=== PATIENT | male | born 1970 | race Hispanic/Latino ===

== ENCOUNTER 2019-08-19 03:16 | Inpatient (IN) | payer BC ==
[2019-08-19] MEDS ORDERED: Promethazine HCl 25 MG/ML VIAL ONE (03:34)
[2019-08-19] MEDS ORDERED: niCARdipine 25 MG in Sodium Chloride 0.9% 250 ML 240 ML IVPB SCH (04:45)
[2019-08-19] MEDS ORDERED: Acetaminophen 325 MG TAB PO PRN (05:15)
[2019-08-19] MEDS ORDERED: Ondansetron ODT 4 MG TAB SL PRN (05:15)
[2019-08-19] MEDS ORDERED: Ondansetron PF 4 MG/2 ML Vial IVP PRN ×2 (05:15→06:14)
[2019-08-19 05:41] VITALS: BMI 21.9
[2019-08-19] MEDS ORDERED: Labetalol HCl 100 MG/20 ML VIAL SLOW IVP PRN (06:14)
[2019-08-19] MEDS ORDERED: Acetaminophen 650 MG Suppository PR PRN (06:14)
[2019-08-19] MEDS ORDERED: Morphine 2 MG/ML SYRINGE SLOW IVP PRN (06:14)
[2019-08-19] MEDS ORDERED: Nitroglycerin 0.4 MG TAB (25 Tab Bottle) SL PRN (06:14)
[2019-08-19] MEDS ORDERED: Dextrose 5% in Water 1,000 ML IV PRN (06:14)
[2019-08-19] MEDS ORDERED: HumaLOG 300 UNITS/3 ML VIAL SC PRN (06:14)
[2019-08-19] MEDS ORDERED: Dextrose 50% Abboject 50 ML SYRINGE SLOW IVP PRN (06:14)
[2019-08-19] MEDS ORDERED: Morphine 2 MG/ML SYRINGE SLOW IVP SCH (06:15)
[2019-08-19] MEDS ORDERED: Labetalol HCl 100 MG/20 ML VIAL SLOW IVP SCH (06:15)
[2019-08-19] MEDS ORDERED: Scopolamine 1.5 mg/72 hour Patch TD SCH (06:15)
[2019-08-19] MEDS ORDERED: Prevnar 13-Val Conj/PF 0.5 ML SYRINGE IM ONE (06:30)
[2019-08-19] MEDS ORDERED: FLU VACC QS2019-20(6MOS UP)/PF 60 MCG/0.5 ML SYRINGE IM ONE (06:30)
--- NOTE | 2019-08-19 06:47 | HP ---
PRESENTING COMPLAINT: Nausea, vomiting, and elevated blood pressure. HISTORY OF PRESENT ILLNESS: Mr. Nathaly Porras is a 49-year-old male with past medical history of hypertension, end-stage renal disease, on dialysis Wednesday, Wednesday, Wednesday who underwent his regular dialysis today, but post procedure he developed rise in elevated blood pressure requiring transfer to the emergency room at [facility]. The patient also admits to headache, nausea, which has been persistent as well as intermittent dizziness. He denies any chest pain. The patient denies any fever or chills. The patient states he has been compliant with his medications and has taken his medicine predialysis. In the emergency room, he was noted with elevated blood pressure with systolic over 200s/110s. He has been started on Cardene drip. He states blood pressure has improved to systolic of 170s to 180s now. He is still having persistent nausea. PAST MEDICAL HISTORY: Hypertension, end-stage renal disease. PAST SURGICAL HISTORY: AVF creation. HOME MEDICATIONS: Include: 1. Clonidine 0.3 patch. 2. Metoprolol 25 b.i.d. FAMILY HISTORY: No history of CAD. SOCIAL HISTORY: The patient denies any tobacco or alcohol use. ALLERGIES: NO KNOWN DRUG ALLERGIES. REVIEW OF SYSTEMS: All other system review x14 were negative except as mentioned above. PHYSICAL EXAMINATION: CURRENT VITALS: Blood pressure of 172/103, pulse of 85, respiratory rate of 18, O2 saturation 95% on room air. GENERAL: Average built, middle-aged male, intermittent nausea . HEAD: Atraumatic, normocephalic. Pupils equal, reactive to light. NECK: No JVD. No carotid bruit. RESPIRATORY: Good air entry. No crepitations. CARDIOVASCULAR: S1, S2. Rate and rhythm regular. ABDOMEN: Mild epigastric area tenderness. Bowel sounds positive in all 4 quadrants. No rebound or guarding. EXTREMITIES: No pedal edema. No calf tenderness. Right upper arm AV in situ. NEUROLOGIC: The patient is alert, conversant, mainly Bengali-speaking, but able to hold conversation in Japanese. LABORATORY DATA: Troponin less than 0.01. Rest of lab from [facility] reviewed with no immediate problems. IMPRESSION: 1. Hypertensive urgency. 2. Recurrent nausea, vomiting, possibly due to gastroenteritis. 3. End-stage renal disease, volume controlled. PLAN: The patient admitted to ICU, currently on Cardene drip. Continue Cardene drip. We will start IV labetalol dosing. We will also continue clonidine patch. A component of pain may be contributing to patient's symptoms. We will give IV morphine now. We attempted control of nausea with Zofran p.r.n. as well as scopolamine patch. When nausea controlled we will start the patient on p.o. medication. We will add labetalol or minoxidil as tolerated. We will do subcutaneous Lovenox for DVT prophylaxis. We will keep patient in observation for now. We will consult Nephrology to continue ESRD management while in-house. Follow serial cardiac enzymes. We will do advanced directives. The patient is full code. Total time spent in review of record, discussion with patient, and evaluation greater than 60 minutes. Job ID: [id number]
[2019-08-19] MEDS ORDERED: cloNIDine 0.1mg/24 Hour PATCH TD SCH (07:00)
[2019-08-19 07:42] LABS: Troponin I Less than 0.010 ng/mL (< 0.028)
[2019-08-19] MEDS: hydrALAZINE 20 MG/ML VIAL SLOW IVP PRN ×2 (08:21→14:50)
[2019-08-19] MEDS: Famotidine/PF 20 mg/2ml Vial SLOW IVP SCH ×2 (08:48→20:17)
[2019-08-19] MEDS: Heparin 5,000 UNITS/ML VIAL SC SCH ×3 (08:48→20:17)
[2019-08-19] MEDS ORDERED: NIFEdipine XL 30 MG TAB PO SCH ×2 (10:30→13:30)
[2019-08-19] MEDS ORDERED: Metoprolol Tartrate 25 MG TAB PO SCH (11:00)
[2019-08-19] MEDS ORDERED: cloNIDine 0.2mg/24 Hour PATCH TD SCH (11:00)
--- NOTE | 2019-08-19 11:02 | CON ---
DATE OF CONSULTATION: HISTORY OF PRESENT ILLNESS: Mr. Andersen is a 49-year-old male with ESRD secondary to hypertensive nephropathy and admitted for labile hypertension. Initially, blood pressure was in the 200 systolic and currently is in the 170s to 190s. Adjustment BP medications are being done. He did undergo hemodialysis yesterday. We are being consulted for his maintenance hemodialysis. REVIEW OF SYSTEMS: Positive for headache, nausea, and vomiting. No chest pain. No shortness of breath. No diarrhea. No constipation. No productive cough. No fever or chills. Appetite and energy level are fair. No dysuria. No urinary frequency. No abdominal pain. No hematochezia. No melena. No hematemesis. MEDICATIONS: Currently, the patient is on; 1. Scopolamine 1.5 mg transdermal every 3 days. 2. Nicardipine drip. 3. Metoprolol 25 mg p.o. b.i.d. 4. Hydralazine 10 mg IV q.4. 5. Heparin 5000 units subcu b.i.d. 6. Famotidine 20 mg IV daily. 7. Clonidine patch-TTS-1 q.7 weekly. PAST MEDICAL HISTORY: 1. ESRD from hypertensive nephropathy. 2. Longstanding hypertension. PAST SURGICAL HISTORY: Status post cuffed hemodialysis catheter, status post AV fistula placement. SOCIAL HISTORY: The patient was originally from [place], currently lives in [place]. 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 Education, high school in [place]. He has 3 children. He currently does not smoke. No alcohol intake. No IV drug abuse. Status post blood transfusion. ALLERGIES: NO KNOWN DRUG ALLERGIES. TRAUMA: None. IMMUNIZATIONS: Up-to-date. HOSPITALIZATIONS: Please see past medical history. FAMILY HISTORY: No family history of ESRD. PHYSICAL EXAMINATION: VITAL SIGNS: Blood pressure currently 173/79, heart rate 86, respiratory rate 17, and pulse ox 99%. GENERAL: Noted to be awake, alert, comfortable, not in distress. SKIN: Adequate turgor. HEENT: Pinkish conjunctivae. Anicteric sclerae. NECK: No neck mass. No carotid bruits. No JVD. CHEST: No deformities. LUNGS: Clear breath sounds. HEART: Normal sinus rhythm. No murmur. No gallops. No rubs. ABDOMEN: Globular, soft, and nontender. No masses. EXTREMITIES: No edema. No deformities. LABORATORY DATA: Laboratories on August 19, 2019; white count 6.7, hemoglobin 12.7. Sodium 140, potassium 4.7, chloride 96, carbon dioxide 30, BUN 22, creatinine 7.82, and calcium 8.7. LFTs normal. Troponin I less than 0.010. IMAGING DATA: X-ray of August 19, 2019, shows increased lung markings. CT scan of the brain, no acute intracranial abnormality. ASSESSMENT AND PLAN: 1. Labile hypertension. Continue currently with BP medications. I would at least increase the transdermal clonidine from TTS-1 to TTS-2. He has been occasionally noncompliant with his BP medications. He has responded well with minoxidil in the past. For the moment, we will continue current antihypertensive regimen. If it is unimproved, we will consider adding minoxidil. 2. End-stag renal disease, stable, currently on Wednesday, Wednesday, and Wednesday hemodialysis regimen. No indication for an emergent hemodialysis today. His Kt/V suggests he is adequately dialyzed with the current dialysis regimen. Overall, agree with current management. Job ID: [id number]
[2019-08-19] MEDS: Metoprolol Tartrate 25 MG TAB PO SCH (20:17)
--- NOTE | 2019-08-19 20:28 | PDOC.EVN ---
Event Note - Event Note Event Note: seen and examined. Start nifedipine and wean off cardene infusion. Consult nephrology.
--- NOTE | 2019-08-19 23:53 | CON ---
DATE OF CONSULTATION: SUBJECTIVE: Mr. Andersen is a 49-year-old male, admitted to the critical care unit with hypertension. He has end-stage renal disease. His blood pressure is improving with a Cardene drip. He was dialyzed yesterday. PAST MEDICAL HISTORY: Remarkable for hypertension and end-stage renal disease. His family says they think he has not been taking his blood pressure medicines. He has had multiple vascular access procedures in the past. SOCIAL HISTORY: He is a nonsmoker, nondrinker, nondrug user. ALLERGIES: HE HAS NO DRUG ALLERGIES. FAMILY HISTORY: Negative for lung disease in early age. REVIEW OF SYSTEMS: Otherwise negative. PHYSICAL EXAMINATION: VITAL SIGNS: He is afebrile. Heart rate 83, blood pressure 150/83, respiratory rate 16. HEENT: Pupils are equal. Sclerae anicteric. NECK: Supple. No lymphadenopathy. LUNGS: Clear. HEART: Regular rhythm. ABDOMEN: Soft and nontender. EXTREMITIES: Without clubbing, cyanosis, or edema. LABORATORY DATA: White count 6.7, hemoglobin 12.7, platelets 112. Potassium is 4.7. This morning, creatinine was 7.8, BUN is 22. IMPRESSION: Poorly-controlled hypertension, now improving with Cardene drip. He is being transitioned to p.o. medications. TIME SPENT: This is a 70-minute consult, 50% of the time spent in coordinating care. Job ID: [id number]
[2019-08-20 06:50] LABS: Anion Gap 16 mmol/L (10-20); BUN (Urea Nitrogen) 43 mg/dL (8.9-20.6); Calc. Creatinine Clearance 7 mL/min (70-130); Calcium 7.8 mg/dL (7.8-10.44); Carbon Dioxide 30 mmol/L (22-29); Chloride 99 mmol/L (98-107); Estimated GFR-MDRD 4; Glucose 92 mg/dL (70-105); Potassium 4.5 mmol/L (3.5-5.1); Sodium 140 mmol/L (136-145)
[2019-08-20 08:08] LABS: #Basophils 0.1 thou/uL (0.0-0.2); #Eosinphils 0.2 thou/uL (0.0-0.7); #Lymphocytes 2.3 thou/uL (1.20-3.40); #Monocytes 0.3 thou/uL (0.11-0.59); %Eosinophils 4.4 % (0.0-10.0); %Lymphocytes 47.7 % (21.0-51.0); %Monocytes 5.6 % (0.0-10.0); %Neutrophils 41.3 % (42.0-75.0); Hemoglobin 10.7 g/dL (14.0-18.0); Mean Corpuscular HGB CONC 34.8 g/dL (32.0-36.0); Mean Corpuscular Hemoglobin 35.1 pg (27.0-31.0); Mean Platelet Volume 8.9 fL (7.4-10.4); Platelet Count 91 thou/uL (130-400); Platelet Morphology Comment Appears Decreased; RBC Distribution Width 13.2 % (11.5-14.5); Red Blood Cell (RBC) Count 3.05 mill/uL (4.70-6.10); White Blood Cell (WBC) Count 4.9 thou/uL (4.8-10.8)
[2019-08-20] MEDS: Famotidine/PF 20 mg/2ml Vial SLOW IVP SCH (08:17)
[2019-08-20] MEDS: Metoprolol Tartrate 25 MG TAB PO SCH (08:18)
[2019-08-20] MEDS: Heparin 5,000 UNITS/ML VIAL SC SCH (08:18)
[2019-08-20 08:56] VITALS: BP 156/88
[2019-08-20] MEDS ORDERED: NIFEdipine XL 60 MG TAB PO SCH (09:00)
[2019-08-20 12:37] VITALS: TEMP 98
--- NOTE | 2019-08-20 16:20 | DIS ---
DATE OF ADMISSION: 08/19/2019 DATE OF DISCHARGE: 08/20/2019 DISCHARGE DIAGNOSES: 1. Hypertensive urgency. 2. Recurrent nausea and vomiting. 3. End-stage renal disease, on hemodialysis. 4. Malignant hypertension with headache and visual changes. CONSULTS: 1. Nephrology. 2. Pulmonary and Critical Care. HOSPITAL COURSE: A 49-year-old male with known history of hypertension, end-stage renal disease, on hemodialysis Wednesday, Wednesday, and Wednesday, who developed markedly elevated hypertension associated with visual changes and headache after hemodialysis as well as nausea, vomiting, and intermittent dizziness. The patient was found to have markedly elevated blood pressure above 200s/110. Impression of malignant hypertension was made and the patient was started on Cardene drip and admitted to the ICU. Blood pressure improved and later nifedipine was restarted and Cardene drip was subsequently weaned off. Blood pressure remained improved and the patient was symptom-free and was subsequently discharged home. At discharge, visual changes, nausea, vomiting, as well as headache has resolved. PHYSICAL EXAMINATION: VITAL SIGNS: Temperature 98.0, pulse 55, respiratory rate 19, SpO2 of 97% on room air, and blood pressure is 152/82. GENERAL: Middle-aged male, in no obvious distress. Afebrile. Anicteric. Acyanotic. HEENT: Normocephalic, atraumatic. Oral mucosa is moist. CARDIOVASCULAR: Regular rhythm and rate with normal heart sounds 1 and 2. RESPIRATORY: Good air entry bilaterally with no crackle or rhonchi or use of accessory muscles. GASTROINTESTINAL: Full, soft, nontender, and nondistended with normal bowel sounds. EXTREMITIES: Grossly normal looking, atraumatic with no edema or erythema. CENTRAL NERVOUS SYSTEM: Conscious, alert, oriented x3 with appropriate mental status. Cranial nerves II through XII are grossly intact. The patient is ambulant. DISCHARGE CONDITION: Improved. DISCHARGE DISPOSITION: Home. DISCHARGE MEDICATIONS: 1. Clonidine patch 0.3 transdermal q.7 days. 2. Metoprolol 25 mg p.o. b.i.d. 3. Nifedipine 60 mg p.o. daily. TIME SPENT: Discharge took more than 35 minutes. Job ID: [id number]
--- NOTE | 2019-08-20 22:38 | PRG ---
DATE OF SERVICE: 08/20/2019 SUBJECTIVE: Vern Andersen was evaluated today. He said he was feeling better. OBJECTIVE: VITAL SIGNS: Blood pressure was controlled. He is afebrile. Heart rate is in the 50s, blood pressure 152/82 at noon, respiratory rates in the teens. LUNGS: Clear. HEART: Regular rhythm. He had a to and fro squeaking, grade 3/6 systolic murmur today that I could hear that I did not hear yesterday. ABDOMEN: Soft. PLAN: I recommended an echocardiogram, which has been done. I was consulted to see if I felt he was stable for discharge. Apparently, he has a chair at the dialysis center today. I think that is reasonable, but it is imperative that the echo would be followed up. The nurse was to relay to the bank advisor the fact that the echocardiogram had been done. We will see as needed in the future. Job ID: [id number]
[2019-08-26] MEDS ORDERED: cloNIDine 0.2mg/24 Hour PATCH TD SCH (09:00)
== END 2019-08-20 12:25 | disposition home or self-care (01) | DRG 304 ==
LOC: ERS 03:16 → CCU 04:03
PROVIDERS: ADMIT Internal Medicine; ATTEND Internal Medicine
DX: I16.0 Hypertensive urgency (principal); N18.6 End stage renal disease; R11.2 Nausea with vomiting, unspecified; I12.0 Hypertensive chronic kidney disease with stage 5 chronic kidney disease or end stage renal disease; Z99.2 Dependence on renal dialysis; Z79.899 Other long term (current) drug therapy
CPT/HCPCS: 36415; 36416; 80048; 84484; 85025; 93005; 93306; J0360; J1644; J2270; J2405; J2550; J7050; S0028

== ENCOUNTER 2020-04-02 08:04 | Inpatient (IN) | payer BC ==
[2020-04-02] MEDS ORDERED: hydrALAZINE 20 MG/ML VIAL ONE ×2 (08:37→09:59)
--- NOTE | 2020-04-02 08:50 | RAD ---
RADIOGRAPH CHEST 1 VIEW: DATE: 04/02/2020 HISTORY: 49-year-old male with chest pain and hypertension FINDINGS: There is cardiomegaly. There is no evidence of consolidation, pulmonary alveolar edema, or pneumothor ax. The lateral costophrenic angles are not effaced. There is pulmonary venous congestion. IMPRESSION: cardiomegaly and pulmonary venous congestion.
[2020-04-02 08:51] LABS: #Eosinphils 0.1 thou/uL (0.0-0.7); #Monocytes 0.3 thou/uL (0.11-0.59); #Neutrophils 5.7 thou/uL (1.40-6.50); %Basophils 0.1 % (0.0-1.0); %Lymphocytes 13.5 % (21.0-51.0); %Neutrophils 81.4 % (42.0-75.0); Hemoglobin 13.3 g/dL (14.0-18.0); Mean Corpuscular HGB CONC 33.8 g/dL (32.0-36.0); Mean Corpuscular Hemoglobin 35.8 pg (27.0-31.0); Mean Platelet Volume 9.5 fL (7.4-10.4); Platelet Count 129 thou/uL (130-400); RBC Distribution Width 13.2 % (11.5-14.5); Red Blood Cell (RBC) Count 3.73 mill/uL (4.70-6.10)
--- NOTE | 2020-04-02 08:55 | CT ---
Exam: CT brain PROVIDED CLINICAL HISTORY: Headache COMPARISON: 08/19/2019 FINDINGS: The ventricular system is normal in size and morphology. No evidence for intracranial hemorrhage or mass effect. The extracranial soft tissues and osseous structures demonstrate no evidence for an acute abnormality. IMPRESSION: No evidence for intracranial hemorrhage or mass effect.
[2020-04-02 09:08] LABS: ALT (SGPT) 18 U/L (8-55); AST (SGOT) 19 U/L (5-34); Albumin 4.5 g/dL (3.5-5.0); Alkaline Phosphatase 86 U/L (40-110); Anion Gap 18 mmol/L (10-20); BUN (Urea Nitrogen) 35 mg/dL (8.9-20.6); Bilirubin, Total 1.8 mg/dL (0.2-1.2); CK (CPK) 186 U/L (30-200); Calc. Creatinine Clearance 0 mL/min (70-130); Calcium 8.3 mg/dL (7.8-10.44); Carbon Dioxide 32 mmol/L (22-29); Chloride 93 mmol/L (98-107); Estimated GFR-MDRD 6; Globulin 2.9 g/dL (2.4-3.5); Glucose 113 mg/dL (70-105); Lipase 34 U/L (8-78); Potassium 4.6 mmol/L (3.5-5.1); Protein, Total 7.4 g/dL (6.0-8.3); Sodium 138 mmol/L (136-145)
[2020-04-02 09:27] LABS: MDiff Complete? YES; Macrocytosis SLIGHT = 6-15 cells (100X) (0-5/hpf); Platelet Morphology Comment Appears Adequate; Polychromasia SLIGHT = 2-3 cells (100X) (0-2/hpf)
[2020-04-02] MEDS ORDERED: Ondansetron PF 4 MG/2 ML Vial ONE ×2 (10:04)
--- NOTE | 2020-04-02 11:24 | PDOC.FPRHP ---
- History of Present Illness Chief Complaint: high BP History of Present Illness: Pt is a 49yo M with a PMH of HTN, diastolic HF, and ESRD on dialysis who presents with high BP. Patient states yesterday at dialysis he was told his BP was high in the 210s and he had RODRIGUEZ and nausea. This morning, patient endorses the same symptoms and around 0500 he began throwing up. Patient vomited during the interview. He notes compliance with his home BP meds of metoprolol, minoxidil, and clonidine patch, however discharge note from July states he was supposed to be taking metoprolol, clonidine patch and nifedipine instead of minoxidil. Patient endorses trouble sleeping secondary to SOB, and states he cannot lay flat and he often times wakes up in the middle of the night because he can't breathe. He occasionally has swelling in his legs and his right scrotum , but denies this now. He denies CP, changes in vision, abdominal pain, fever, chills, SOB except as previously noted in HPI. Patient has dialysis MWF and follows with airline pilot flight instructor Dr. Juarez. ED Course: Patient received Zofran, Hydralazine 20mgx2, Nitro, Labetalol 10mg, Phenergen, and Dilt 20mg. - Allergies/Adverse Reactions Allergies Allergy/AdvReac Type Severity Reaction Status Date / Time No Known Allergies Allergy Verified 08/19/19 05:40 - Home Medications Medication Instructions Recorded Confirmed Type Metoprolol Tartrate 25 mg PO BID 08/19/19 08/19/19 History cloNIDine [Clonidine] 1 each TD Q7D 08/19/19 08/19/19 History NIFEdipine [Procardia XL] 60 mg PO DAILY #30 tab 08/20/19 Rx - History PMHx: HTN, ESRD PSHx: R arm fistula, kidney biopsy FHx: HTN in father Social: no TAD - Review of Systems General: reports: fatigue. denies: fever/chills Eyes: denies: eye pain, vision changes ENT: denies: nasal congestion, rhinorrhea Respiratory: reports: other (positive for paroxysmal nocturnal dyspnea, orthopnea). denies: cough, congestion, shortness of breath Cardiovascular: reports: edema (LE edema). denies: chest pain, palpitation Gastrointestinal: reports: nausea, vomiting Genitourinary: denies: incontinence, dysuria Skin: denies: rashes, lesions Musculoskeletal: denies: pain, tenderness Neurological: denies: syncope, seizure Psychological: denies: anxiety, depression - Vital signs VITAL SIGNS WedApr 02, 2020 11:02 SHERRILL Parks Cullen BP: 181/98, Pulse: 92, Resp: 14, O2 sat: 99 on (Room Air), Time: 04/02/2020 11:02. - Physical Exam Constitutional: awake, alert and oriented, well developed HEENT: EOMI, grossly normal vision, grossly normal hearing Neck: supple, trachea midline Chest: no-tender to palpation Heart: RRR, normal S1/S2, other (systolic murmur 3/6) Lungs: CTAB, no respiratory distress Abdomen: soft, non-tender Musculoskeletal: normal structure, normal tone Neurological: no focal deficit, normal sensation Heme/Lymphatic: no purpura, no petechia Psychiatric: normal mood and affect, intact recent and remote memory FMR H&P: Results - Labs Result Diagrams: 04/02/20 08:38 04/02/20 08:37 Lab results: WBC 7.0 thou/uL (4.8-10.8) 04/02/20 08:38 Hgb 13.3 g/dL (14.0-18.0) L 04/02/20 08:38 Hct 39.5 % (42.0-52.0) L 04/02/20 08:38 MCV 106.0 fL (78.0-98.0) H 04/02/20 08:38 Plt Count 129 thou/uL (130-400) L 04/02/20 08:38 Neutrophils % 81.4 % (42.0-75.0) H 04/02/20 08:38 Sodium 138 mmol/L (136-145) 04/02/20 08:37 Potassium 4.6 mmol/L (3.5-5.1) 04/02/20 08:37 Chloride 93 mmol/L (98-107) L 04/02/20 08:37 Carbon Dioxide 32 mmol/L (22-29) H 04/02/20 08:37 BUN 35 mg/dL (8.9-20.6) H 04/02/20 08:37 Creatinine 9.14 mg/dL (0.7-1.3) H 04/02/20 08:37 Glucose 113 mg/dL (70-105) H 04/02/20 08:37 Calcium 8.3 mg/dL (7.8-10.44) 04/02/20 08:37 Total Bilirubin 1.8 mg/dL (0.2-1.2) H 04/02/20 08:37 AST 19 U/L (5-34) 04/02/20 08:37 ALT 18 U/L (8-55) 04/02/20 08:37 Alkaline Phosphatase 86 U/L (40-110) 04/02/20 08:37 Creatine Kinase 186 U/L (30-200) 04/02/20 08:37 B-Natriuretic Peptide 4245.2 pg/mL (0-100) H 04/02/20 08:38 Serum Total Protein 7.4 g/dL (6.0-8.3) 04/02/20 08:37 Albumin 4.5 g/dL (3.5-5.0) 04/02/20 08:37 Lipase 34 U/L (8-78) 04/02/20 08:37 Additional comment: Chest XR showed pulmonary congestion and cardiomegaly - EKG Interpretation EKG: reviewed in the ED. Sinus bradycardia at 59. No ST segment elevations. FMR H&P: A/P - Plan 1. Hypertensive Urgency patient's BP in the ED was 229/128, stable now s/p hydralazine 40mg IV, nitro and dilt 20mg IV in the ED likely multifactorial but could be 2/2 fluid overload; patient complaining of fluid overload symptoms, but no physical exam findings -goal BP around 180. Patient states home BPs are in the 140s. -Hydralazine 10mg PRN for SBP>180 -continue home meds of Metoprolol 25mg BID, Clonidine patch .3 -add Procardia 30mg XL as per Dr. Juarez 2. ESRD on dialysis -MWF dialysis schedule, will continue - Cr 9.14 -airline pilot flight instructor Dr. Juarez on board, appreciate the recs 3. Diastolic HF -previous echo showed diastolic dysfunction with EF of 60-65% in 07/2019 -strict I/0s -fluid restriction 1200mL -echo pending Disposition/LOS: Code: FULL IVF: KVO PCP: Shu Maria, DO-out of town Dispo: admit to Tele, obs Attending: Ayad ESTES H&P: Upper Level - Plan Date/Time: 04/02/20 1117 I, Marcus Kim PGY3, have evaluated this patient and agree with findings/ plan as outlined by internet marketing consultant resident. Pertinent changes/additions are listed here. S: 49yo M with pmh of HTN and ESRD (HD on MWF) presents for elevated BP, RODRIGUEZ, and nausea. reports yesterday his bp was elevated and this is when he had onset of symptoms. He had dialysis yesterday and believes his SBP was 210 in dialysis. He was hospitalized here in july 2019 for htn urgency and was discharged on metoprolol, clonidine, nifedipine. today he reports he is on metoprolol, clonidine, and minoxidil as prescribed by Dr. Juarez. He reports good medication compliance. Denies neurologic deficits. No CP/palpitation, no SOB. O: on exam pt is hypertensive with BP 181/98, HR 113 Grade 3/6 systolic murmur EKG shows NSR electrolytes wnl, Cr ~ 9 CXR shows pulmonary congestion A/P: HTN urgency A- Likely multifactorial, some component of volume overload based on hpi as well as possible need to titrate up home regimen. Currently he is at acute goal with SBP 180 (max MAP in ED was 146). He is s/p hydralazine 40mg IV, dilt 20mg IV, and nitro in ED. P- admit to tele for observation, expected stay < 2 midnights - will plan to restart home metoprolol and clonidine -consult Dr. Juarez, appreciate recs -consider starting nifedipine as he was DCd with this July 2019 -hydralazine 10mg IV for SBP > 180 HFpEF A- ECHO in 2018 shows 2-3/3 diastolic dysfunction. Pt has been having worsening of CHF Sx but euvolemic on exam P- will repeat echo considering worsening of Sx -strict I/Os -fluid restriction to 1200ml Mitral regurgitation A- murmur heard on exam P- repeat echo per plan above ESRD on HD A- Pt follows with Dr. Juarez P- Consult Dr. Juarez for possible dialysis today in addition to routing MWF nausea/vomiting A- likely 2/2 HTN vs. viral gastroenteritis which may have worsened HTN. Does not appear to be volume down. S/p 8mg zofran and one dose phenergan in ED P- will conitinue zofran prn. CODE: FULL IVF: KVO dispo: tele obs, anticipate less than 2 midnights Ppx: heparin PCP: CALVIN Addendum - Attending - Attending Attestation Date/Time: 04/02/20 0431 I personally evaluated the patient and discussed the management with Dr. Teixeira/ Julio. I agree with the History, Examination, Assessment and Plan documented above with any addition or exceptions noted below. Patient here for elevated BP since yesterday. He reports headache and nausea since yesterday as well. Reports normal BP at 140s systolic. Reports taking all meds and not missing HD sessions. His BP is improved somewhat with ER interventions. He will be admitted for HTN urgency, restart home BP meds and titrate as needed. Repeat TTE due to new symptoms of PND and orthopnea. Known history of dCHF grade II/III. Dr. Juarez consulted for HD recs. If nausea and vomiting continues, may need further workup/interventions for that.
[2020-04-02] MEDS ORDERED: Acetaminophen 325 MG TAB PO PRN (12:09)
[2020-04-02] MEDS ORDERED: Ondansetron PF 4 MG/2 ML Vial IVP PRN (12:12)
[2020-04-02] MEDS ORDERED: Labetalol HCl 100 MG/20 ML VIAL ONE (12:15)
[2020-04-02] MEDS ORDERED: hydrALAZINE 20 MG/ML VIAL SLOW IVP PRN (12:15)
[2020-04-02] MEDS ORDERED: Promethazine 25 MG TAB ONE (12:15)
[2020-04-02 12:58] LABS: Troponin I 0.031 ng/mL (< 0.028)
[2020-04-02] MEDS ORDERED: niCARdipine 25 MG in Sodium Chloride 0.9% 250 ML 250 ML IVPB SCH (14:00)
[2020-04-02] MEDS ORDERED: cloNIDine 0.3mg/24 Hour PATCH TD SCH (14:31)
[2020-04-02] MEDS: Heparin 5,000 UNITS/ML VIAL SC SCH ×2 (15:31→20:47)
[2020-04-02 15:46] LABS: Troponin I 0.028 ng/mL (< 0.028)
[2020-04-02] MEDS: Carvedilol 3.125 MG TAB PO SCH (17:28)
[2020-04-02] MEDS ORDERED: niCARdipine 50 MG in Sodium Chloride 0.9% 250 ML 230 ML IV SCH (17:30)
[2020-04-02] MEDS ORDERED: Metoprolol Tartrate 25 MG TAB PO SCH (17:30)
[2020-04-02] MEDS ORDERED: Nitroglycerin 2% Ointment 1 INCH/1 GM Packet TOP SCH (18:00)
--- NOTE | 2020-04-02 18:16 | CON ---
DATE OF CONSULTATION: HISTORY OF PRESENT ILLNESS: Mr. Andersen is a 49-year-old male with ESRD, who was admitted for labile hypertension. Early this morning, he had complained of a headache with nausea and vomiting. He presented to the ER with elevated blood pressure. We are now being consulted for management of his ESRD. Due to the poorly controlled blood pressure, the patient has been started on IV nicardipine with improvement of the blood pressure. Please note, at home, the patient was taking minoxidil, which he seems to be tolerating. However, chest x-ray showed increased lung markings. The minoxidil will be discontinued due to the generalized edema. REVIEW OF SYSTEMS: Positive for headache. Positive for nausea and vomiting. No diarrhea. No chest pain. Denies any overt shortness of breath per se. No hematochezia. No melena. Appetite and energy level is decreased. No joint pains. No abdominal pain. No fever or chills. No productive cough. No dysuria. MEDICATIONS: Home medications included: 1. Minoxidil 5 mg p.o. nightly. 2. Metoprolol tartrate 50 mg p.o. b.i.d. 3. Clonidine patch-TTS-3 every week. Current medications include: 1. Nicardipine drip. 2. Carvedilol 3.125 mg p.o. b.i.d. 3. Cbkqzeymm-ODT-7 patch every 7 days. 4. Heparin 5000 units subcu t.i.d. 5. Metoprolol tartrate 50 mg p.o. b.i.d. 6. Nitro-Bid 2% ointment one tap q.6 h. PAST MEDICAL HISTORY: 1. Longstanding history of hypertension. 2. ESRD from hypertensive nephropathy. PAST SURGICAL HISTORY: 1. Status post AV fistula placement. 2. Status post cuffed hemodialysis catheter placement. SOCIAL HISTORY: The patient lives in [place]. He has 3 children. Education, high school in [place]. 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 No alcohol intake. No history of smoking. No IV drug abuse. Status post blood transfusion. Active lifestyle. ALLERGIES: NONE. TRAUMA: None. IMMUNIZATIONS: Up-to-date. HOSPITALIZATIONS: Please see past medical history. FAMILY HISTORY: No family history of ESRD. PHYSICAL EXAMINATION: VITAL SIGNS: Blood pressure is 176/99 with a heart rate of 83, respiratory rate 10, O2 saturation 100% on room air. GENERAL: The patient is awake, comfortable, not in overt distress. SKIN: Adequate turgor. HEENT: He has pinkish conjunctivae. Anicteric sclerae. NECK: No neck mass. No carotid bruits. No JVD. CHEST: No deformities. LUNGS: Clear breath sounds. No wheezing. No crackles. HEART: Normal sinus rhythm. No murmur, no gallops, and no rubs. ABDOMEN: Globular, soft, and nontender. No masses. EXTREMITIES: No edema. No deformities. NEUROLOGIC: Awake and oriented to 3 spheres. Moving all extremities. No tremors. No asterixis. No ataxia. LABORATORY DATA: On 04/02/2020: White count 7 and hemoglobin 13.3. Sodium 138, potassium 4.6, chloride 93, carbon dioxide 32, BUN 35, creatinine 9.14, glucose 113, and calcium 8.3. AST 19 and ALT 18. BNP is 4245. Troponin-I 0.028. Albumin 4.5. IMAGING STUDIES: 1. Chest x-ray showed increased lung markings. 2. CT scan of the brain showed no acute intracranial abnormality. ASSESSMENT AND PLAN: 1. Labile hypertension. We will add Hytrin 5 mg tablet nightly and losartan at 50 mg tablet nightly. He will continue the other p.o. antihypertensive medications. Currently on IV nicardipine until the blood pressure is better controlled. 2. Congestive heart failure, clinically asymptomatic. We will schedule for hemodialysis tomorrow and max out fluid removal as tolerated by the patient. 3. End-stage renal disease. The patient is undergoing 3 times a week hemodialysis at [facility] in [place]. His last Kt/V suggests he is adequately dialyzed with the current dialysis regimen. Overall, agree with current management. Recheck basic metabolic panel and CBC in a.m. Job ID: [id number]
[2020-04-02] MEDS: Terazosin HCl 5 MG CAP PO SCH (20:46)
[2020-04-02] MEDS: Losartan 25 MG TAB PO SCH (20:47)
[2020-04-02] MEDS: Metoprolol Tartrate 50 MG TAB PO SCH (20:47)
[2020-04-03 04:11] LABS: #Eosinphils 0.1 thou/uL (0.0-0.7); #Lymphocytes 1.7 thou/uL (1.20-3.40); #Monocytes 0.3 thou/uL (0.11-0.59); #Neutrophils 2.9 thou/uL (1.40-6.50); %Basophils 0.2 % (0.0-1.0); %Eosinophils 1.5 % (0.0-10.0); %Lymphocytes 33.1 % (21.0-51.0); %Monocytes 6.9 % (0.0-10.0); %Neutrophils 58.2 % (42.0-75.0); Hemoglobin 11.1 g/dL (14.0-18.0); Mean Corpuscular HGB CONC 35.3 g/dL (32.0-36.0); Mean Corpuscular Hemoglobin 37.2 pg (27.0-31.0); Mean Platelet Volume 8.9 fL (7.4-10.4); Platelet Count 102 thou/uL (130-400); RBC Distribution Width 13.3 % (11.5-14.5); Red Blood Cell (RBC) Count 2.99 mill/uL (4.70-6.10)
[2020-04-03 04:12] LABS: ALT (SGPT) 15 U/L (8-55); AST (SGOT) 17 U/L (5-34); Alkaline Phosphatase 69 U/L (40-110); Anion Gap 18 mmol/L (10-20); BUN (Urea Nitrogen) 50 mg/dL (8.9-20.6); Bilirubin, Total 1.3 mg/dL (0.2-1.2); Calc. Creatinine Clearance 7 mL/min (70-130); Calcium 7.7 mg/dL (7.8-10.44); Carbon Dioxide 30 mmol/L (22-29); Chloride 94 mmol/L (98-107); Estimated GFR-MDRD 5; Globulin 2.6 g/dL (2.4-3.5); Glucose 98 mg/dL (70-105); Potassium 4.4 mmol/L (3.5-5.1); Protein, Total 6.6 g/dL (6.0-8.3); Sodium 138 mmol/L (136-145)
--- NOTE | 2020-04-03 05:45 | CON ---
DATE OF CONSULTATION: 04/02/2020 HISTORY OF PRESENT ILLNESS: Mr. Andersen is a 49-year-old male with history of end-stage renal disease and hypertension. I met him last year when he presented with poorly-controlled hypertension. Apparently, with dialysis, he was told he was extremely hypertensive. He had nausea and vomiting today. He also tells me that he has been short of breath when he tries to lie down flat. He is not having any chest discomfort at this time. PAST MEDICAL HISTORY: Remarkable for; 1. End-stage renal disease. 2. History of hypertension. 3. History of vascular access procedures. 4. History of kidney biopsy. SOCIAL HISTORY: He is not a smoker, not a drinker. FAMILY HISTORY: He has a family history of hypertension. REVIEW OF SYSTEMS: 10-point review of systems is otherwise negative. MEDICATIONS: Medications have been reviewed. PHYSICAL EXAMINATION: VITAL SIGNS: Blood pressure when I saw him was 168/90s. HEENT: Pupils are equal. Sclerae are anicteric. NECK: Supple. No lymphadenopathy. LUNGS: Clear. HEART: Regular rhythm. S1, S2 are normal. ABDOMEN: Soft and nontender. EXTREMITIES: Without clubbing, cyanosis, or edema. LABORATORY DATA: White count 7, hemoglobin 13.3, platelets 129. Sodium 138, potassium 4.6, chloride 93, bicarb 32, BUN 35, creatinine 9.14. BNP is 4245. DIAGNOSTIC DATA: Chest x-ray shows early interstitial increase in markings. IMPRESSION: Cardiogenic pulmonary edema secondary to poorly-controlled hypertension. His blood pressure appears to be trending downward. He says his dyspnea complaints are improving. He will remain in the critical care unit we are sure his blood pressure has stabilized, then he can go to a monitored bed. TIME SPENT: This is a 70-minute consult, 50% of the time was spent on the unit coordinating care. Job ID: [id number]
--- NOTE | 2020-04-03 06:05 | PDOC.FM ---
- Subjective Subjective: Pt is a 49yo M with a PMH of HTN, diastolic HF, and ESRD on dialysis who presents with high BP. Overnight, patient was started on a Cardene gtt at 1944 and Losartan 50mg and Terazosin 5mg were added as per Dr. Juarez's recs. Cardene gtt was stopped at 0 and BPs were stable and controlled throughout the night, although lower than goal BP. Today, patient has no complaints and is asking when he can go home. He said he was able to sleep well and did not have trouble breathing compared to before he presented to the ED. He denies RODRIGUEZ, N/V, CP, SOB, abdominal pain, edema. - Objective MAR Reviewed: Yes Vital Signs & Weight: Vital Signs (12 hours) Temp Pulse Ox 04/03/20 00:00 98.2 F 04/02/20 19:05 100 04/02/20 19:00 98.4 F Weight Weight 65.969 kg Most Recent Monitor Data Heart Rate from ECG 74 NIBP 125/63 NIBP BP-Mean 83 Respiration from ECG 13 SpO2 98 I&O: 04/01/20 04/02/20 04/03/20 06:59 06:59 06:59 Intake Total 1195 Balance 1195 Result Diagrams: 04/03/20 03:30 04/03/20 03:30 Phys Exam - Physical Examination Constitutional: NAD HEENT: sclera anicteric Neck: supple, full ROM Respiratory: no wheezing, clear to auscultation bilateral Cardiovascular: RRR, no significant murmur Gastrointestinal: soft, non-tender, positive bowel sounds Musculoskeletal: no edema, pulses present Neurological: moves all 4 limbs Psychiatric: normal affect, A&O x 3 Skin: no rash, normal turgor Dx/Plan - Plan Plan: 1. Hypertensive Urgency patient's BP in the ED was 229/128, stable now s/p hydralazine 40mg IV, nitro and dilt 20mg IV in the ED -goal BP around 180. Patient states home BPs are in the 140s. -Hydralazine 10mg PRN for SBP>180 -Cardene gtt from 1944 to 2299 last night, BPs have been stable -continue home meds of Metoprolol 25mg BID, Clonidine patch .3 -add Procardia 30mg XL (held while on Cardene gtt, but plan to resume today), Losartan 50mg, Terazosin 5mg as per Dr. Juarez -monitor BPs after dialysis 2. ESRD on dialysis -MWF dialysis schedule, will continue - Cr 11.8 -service center appraiser Dr. Juarez on board, appreciate the recs 3. Diastolic HFpEF -previous echo showed diastolic dysfunction with EF of 60-65% in 07/2019 -fluid restriction 1200mL -echo pending 4. Cardiogenic pulmonary edema likely 2/2 poorly controlled HTN -patient complaining of fluid overload symptoms in ED, but no physical exam findings -patient is doing well today, no complaints Code: FULL IVF: KVO PCP: Shu Maria, DO-out of town Dispo: CCU, obs Attending: Ayad Addendum - Attending - Attending Attestation Date/Time: 04/03/20 2034 I personally evaluated the patient and discussed the management with Dr. Teixeira. I agree with the History, Examination, Assessment and Plan documented above with any addition or exceptions noted below. Patient with improved BP s/p Cardene drip and his headaches and nausea have improved. His refractory HTN urgency is now resolved. Monitoring BP today, checking TTE. HD today. If TTE results and BP well controlled, possible discharge. I suspect he has some degree of pericardial effusion based on CXR appearance and awaiting TTE result. He does not have any evidence of tampanade at this time and suspect it will be due to his volume overload and follow over time with continued volume removal.
[2020-04-03 06:07] VITALS: BMI 22.3
[2020-04-03] MEDS: Heparin 5,000 UNITS/ML VIAL SC SCH ×3 (08:49→21:24)
[2020-04-03] MEDS: Metoprolol Tartrate 50 MG TAB PO SCH ×2 (08:49→21:24)
[2020-04-03] MEDS ORDERED: NIFEdipine XL 30 MG TAB PO SCH ×2 (09:00→18:30)
--- NOTE | 2020-04-03 10:13 | PRG ---
DATE OF SERVICE: 04/03/2020 SUBJECTIVE: Mr. Andersen is a 49-year-old male, who was admitted for labile hypertension. We are following up this patient for his maintenance hemodialysis. I have scheduled him for his regular dialysis today. Fluid removal will be done as tolerated by the patient. He was initially initiated on Cardene drip and BP is much better. We have added losartan as well as Hytrin and Procardia to his current antihypertensive regimen. No new complaints today. No chest pain or shortness of breath. OBJECTIVE: VITAL SIGNS: Blood pressure is 139/70, heart rate 62, respiratory rate 13, temperature 98.3, and O2 status 100%. GENERAL: Awake, alert, and comfortable, not in distress. SKIN: Adequate turgor. HEENT: Pinkish conjunctivae. Anicteric sclerae. NECK: No neck mass. No carotid bruits. No JVD. CHEST: No deformities. LUNGS: Clear breath sounds. No wheezing. No crackles. HEART: Normal sinus rhythm. No murmur. No gallops. No rubs. ABDOMEN: Globular. Soft. Nontender. No masses. EXTREMITIES: No edema. No deformities. MEDICATIONS: Medications of April 03, 2020, was reviewed. LABORATORY DATA: Laboratories of April 03, 2020; white count 5, hemoglobin 11.1, sodium 138, potassium 4.4, chloride 94, carbon dioxide 30, BUN 50, creatinine 11.8, calcium 7.7, AST 17, ALT 15, and albumin 4.0. ASSESSMENT AND PLAN: 1. Hypertension. Continue current BP medications. The patient has been weaned off Cardene drip. 2. End-stage renal disease, stable. We will continue hemodialysis regimen on Wednesday, Wednesday, and Wednesday. I have scheduled him for his 3.5-hour hemodialysis today. Again, fluid removal as tolerated by the patient. Okay with the plan, discharge after dialysis. We will follow up this patient at the outpatient dialysis unit. Job ID: [id number]
[2020-04-03] MEDS: Carvedilol 3.125 MG TAB PO SCH (10:50)
[2020-04-03] MEDS: NIFEdipine XL 30 MG TAB PO SCH (10:50)
--- NOTE | 2020-04-03 15:54 | PRG ---
DATE OF SERVICE: 04/03/2020 SUBJECTIVE: Mr. Andersen is stable. OBJECTIVE: VITAL SIGNS: He is afebrile, heart rate is in the 50s, respiratory rate is in the teens, he is on room air, oximetry is 100%, and blood pressure is in 140s, earlier today in the 120s. LUNGS: Clear. HEART: Regular rhythm. ABDOMEN: Soft. EXTREMITIES: Unchanged. IMPRESSION AND PLAN: 1. Hypertensive crisis, resolving. 2. End-stage renal disease. We will sign off. He is stable. In my opinion, move out of critical care unit. Job ID: [id number]
[2020-04-03] MEDS: Losartan 25 MG TAB PO SCH (21:24)
[2020-04-03] MEDS: Terazosin HCl 5 MG CAP PO SCH (21:24)
[2020-04-04 05:03] LABS: #Eosinphils 0.2 thou/uL (0.0-0.7); #Lymphocytes 1.8 thou/uL (1.20-3.40); #Monocytes 0.3 thou/uL (0.11-0.59); #Neutrophils 2.4 thou/uL (1.40-6.50); %Basophils 0.7 % (0.0-1.0); %Eosinophils 3.8 % (0.0-10.0); %Lymphocytes 38.3 % (21.0-51.0); %Monocytes 6.4 % (0.0-10.0); %Neutrophils 50.8 % (42.0-75.0); Hemoglobin 11.7 g/dL (14.0-18.0); Mean Corpuscular HGB CONC 32.5 g/dL (32.0-36.0); Mean Corpuscular Hemoglobin 34.3 pg (27.0-31.0); Mean Platelet Volume 9.2 fL (7.4-10.4); Platelet Count 103 thou/uL (130-400); RBC Distribution Width 12.8 % (11.5-14.5); Red Blood Cell (RBC) Count 3.41 mill/uL (4.70-6.10); White Blood Cell (WBC) Count 4.7 thou/uL (4.8-10.8)
[2020-04-04 05:23] LABS: ALT (SGPT) 15 U/L (8-55); AST (SGOT) 17 U/L (5-34); Alkaline Phosphatase 71 U/L (40-110); Anion Gap 17 mmol/L (10-20); BUN (Urea Nitrogen) 32 mg/dL (8.9-20.6); Bilirubin, Total 1.3 mg/dL (0.2-1.2); Calc. Creatinine Clearance 10 mL/min (70-130); Calcium 8.1 mg/dL (7.8-10.44); Carbon Dioxide 26 mmol/L (22-29); Chloride 97 mmol/L (98-107); Estimated GFR-MDRD 7; Globulin 2.7 g/dL (2.4-3.5); Glucose 83 mg/dL (70-105); Potassium 5.2 mmol/L (3.5-5.1); Protein, Total 6.7 g/dL (6.0-8.3); Sodium 135 mmol/L (136-145)
--- NOTE | 2020-04-04 05:57 | PDOC.FM ---
- Subjective Subjective: Pt is a 49yo M with a PMH of HTN, diastolic dysfunction, and ESRD on dialysis who presented with RODRIGUEZ and high BP in the setting of hypertensive urgency. Patient received dialysis yesterday in which 2L of fluid was removed. Patient's BPs started creeping up yesterday afternoon and after dialysis BPs > 190s/90s. He received Procardia 30mg XL after dialysis and BP was 174/76 early this morning. Patient is resting comfortably in bed. No complaints. He denies RODRIGUEZ, nausea, vomiting, CP, SOB, PND, orthopnea, edema. - Objective MAR Reviewed: Yes Vital Signs & Weight: Vital Signs (12 hours) Temp Pulse Resp BP BP Pulse Ox 04/04/20 04:15 97.8 F 80 15 174/76 H 98 04/03/20 20:07 98.3 F 67 16 199/94 H 98 04/03/20 18:29 52 L 195/97 H 04/03/20 18:15 97.8 F 52 L 15 195/97 H 100 Weight Weight 66.678 kg Most Recent Monitor Data Heart Rate from ECG 58 NIBP 120/73 NIBP BP-Mean 88 Respiration from ECG 14 SpO2 100 I&O: 04/02/20 04/03/20 04/04/20 06:59 06:59 06:59 Intake Total 1395 520 Balance 1395 520 Result Diagrams: 04/04/20 03:43 04/04/20 03:42 Phys Exam - Physical Examination Constitutional: NAD HEENT: sclera anicteric Neck: full ROM Respiratory: no wheezing, clear to auscultation bilateral Cardiovascular: RRR, no significant murmur Gastrointestinal: soft, non-tender Musculoskeletal: no edema, pulses present Neurological: moves all 4 limbs Psychiatric: normal affect, A&O x 3 Skin: no rash, normal turgor Dx/Plan - Plan Plan: 1. Hypertensive Urgency patient's BP in the ED was 229/128. Received hydralazine 40mg IV, nitro and dilt 20mg IV in the ED -goal BP around 180. Patient states home BPs are in the 140s. -Hydralazine 10mg PRN for SBP>180 -Cardene gtt from 1944 to 0 (04/02) -continue home meds of Metoprolol 25mg BID-->Metoprolol 50mg BID, Clonidine patch .3 -Procardia 30mg XL, Losartan 50mg, Terazosin 5mg as per Dr. Juarez -continue to monitor. If patient's pressures are still high, will consider increasing Procardia to 60mg XL. 2. ESRD on dialysis -MWF dialysis schedule, will continue - Cr 8.73 after dialysis -dining room captain Dr. Juarez on board, appreciate the recs 3. Diastolic dysfunction -previous echo showed diastolic dysfunction with EF of 60-65% in 07/2019 -fluid restriction 1200mL -echo shows EF 55-60% with grade 1/3 diastolic dysfunction, moderate mitral regurgitation, mild aortic regurgitation, moderate to severe tricuspid regurgitation, mild pulmonic regurgitation, moderate sized pericardial effusion without tamponade, no evidence of atrial collapse 4. Cardiogenic pulmonary edema likely 2/2 poorly controlled HTN -patient complaining of fluid overload symptoms in ED, but no physical exam findings -patient is doing well today, no complaints 5. Thrombocytopenia likely secondary to ESRD -will continue to monitor -platelets at 103,000 today. OK to continue Heparin 6. Hyperkalemia likely secondary to initiation of an ARB vs ESRD on hemodialysis -will continue to monitor Code: FULL IVF: KVO PCP: Shu Maria, DO-out of town Dispo: CCU, obs Attending: Ayad Sullivanum - Attending - Attending Attestation Date/Time: 04/04/20 5210 I personally evaluated the patient and discussed the management with Dr. Teixeira. I agree with the History, Examination, Assessment and Plan documented above with any addition or exceptions noted below. Patient doing well. Receiving HD today. BP improved today. Monitor BP after HD but hoping he will be able to be discharged this afternoon. Needs outpatient follow up of his pericardial effusion that is currently not affecting hemodynamic status.
[2020-04-04] MEDS: Metoprolol Tartrate 50 MG TAB PO SCH ×2 (08:16→20:29)
[2020-04-04] MEDS: NIFEdipine XL 30 MG TAB PO SCH (08:17)
[2020-04-04] MEDS: Heparin 5,000 UNITS/ML VIAL SC SCH ×3 (08:25→20:28)
[2020-04-04] MEDS: Polyethylene Glycol 3350 17 GM Packet PO SCH (08:29)
[2020-04-04] MEDS ORDERED: NIFEdipine XL 30 MG TAB PO SCH (10:15)
--- NOTE | 2020-04-04 10:20 | PRG ---
DATE OF SERVICE: 04/04/2020 SUBJECTIVE: Mr. Andersen is a 49-year-old male, followed up by the [facility]al [facility] for his management of his ESRD. A cardiac echo was done with this patient, which showed a normal EF. However, significant pericardial effusion was noted. I feel that the CHF and pericardial effusion may have been related to his intake of his minoxidil, which has been discontinued. I plan to do another dialysis to max out fluid removal with this patient. He voices no new complaints. No chest pain or shortness of breath. OBJECTIVE: VITAL SIGNS: Blood pressure is noted at 174/76, heart rate 82, respiratory rate 15, temperature 97.8, and O2 saturation 98%. GENERAL: Awake, alert, and comfortable, not in overt distress. SKIN: Adequate turgor. HEENT: He has pinkish conjunctivae. Anicteric sclerae. NECK: No neck mass. No carotid bruits. No JVD. CHEST: No deformities. LUNGS: Clear breath sounds. No wheezing. No crackles. HEART: Normal sinus rhythm. No murmur. No gallops. No rubs. ABDOMEN: Globular, soft, and nontender. No masses. EXTREMITIES: No edema. No deformities. MEDICATIONS: Medications of April 04, 2020, were reviewed. LABORATORY DATA: Laboratories of April 04, 2020; white count 4.7, hemoglobin 11.7. Sodium 135, potassium 5.2, chloride 97, carbon dioxide 26, BUN 32, creatinine 8.73, glucose 83, calcium 8.1, and albumin 4.0. Cardiac echo of April 03, 2020, showed EF of 55% to 60%. Moderate-sized pericardial effusion was also noted. ASSESSMENT AND PLAN: 1. Congestive heart failure/pericardial effusion, extra hemodialysis today. We will attempt fluid removal as tolerated by the patient. 2. End-stage renal disease. We will continue current Wednesday, Wednesday, and Wednesday hemodialysis. Extra hemodialysis today for fluid removal. 3. Labile hypertension. Hold off minoxidil. We will increase nifedipine to 60 mg XL tablet once a day today. Job ID: [id number]
[2020-04-04] MEDS: NIFEdipine XL 60 MG TAB PO SCH (11:42)
[2020-04-04] MEDS: Losartan 25 MG TAB PO SCH (20:28)
[2020-04-04] MEDS: Terazosin HCl 5 MG CAP PO SCH (20:29)
[2020-04-05 04:16] LABS: #Basophils 0.1 thou/uL (0.0-0.2); #Eosinphils 0.3 thou/uL (0.0-0.7); #Lymphocytes 1.5 thou/uL (1.20-3.40); #Monocytes 0.3 thou/uL (0.11-0.59); #Neutrophils 1.4 thou/uL (1.40-6.50); %Basophils 2.2 % (0.0-1.0); %Eosinophils 7.1 % (0.0-10.0); %Lymphocytes 43.3 % (21.0-51.0); %Neutrophils 39.4 % (42.0-75.0); Hemoglobin 12.1 g/dL (14.0-18.0); Mean Corpuscular HGB CONC 34.3 g/dL (32.0-36.0); Mean Corpuscular Hemoglobin 35.9 pg (27.0-31.0); Mean Platelet Volume 8.8 fL (7.4-10.4); Platelet Count 97 thou/uL (130-400); RBC Distribution Width 12.7 % (11.5-14.5); Red Blood Cell (RBC) Count 3.38 mill/uL (4.70-6.10); White Blood Cell (WBC) Count 3.5 thou/uL (4.8-10.8)
[2020-04-05 04:36] LABS: ALT (SGPT) 14 U/L (8-55); AST (SGOT) 16 U/L (5-34); Albumin 3.9 g/dL (3.5-5.0); Alkaline Phosphatase 77 U/L (40-110); Anion Gap 17 mmol/L (10-20); BUN (Urea Nitrogen) 28 mg/dL (8.9-20.6); Bilirubin, Total 1.3 mg/dL (0.2-1.2); Calc. Creatinine Clearance 11 mL/min (70-130); Calcium 7.9 mg/dL (7.8-10.44); Carbon Dioxide 26 mmol/L (22-29); Chloride 97 mmol/L (98-107); Estimated GFR-MDRD 8; Globulin 2.8 g/dL (2.4-3.5); Glucose 85 mg/dL (70-105); Potassium 4.5 mmol/L (3.5-5.1); Protein, Total 6.7 g/dL (6.0-8.3); Sodium 135 mmol/L (136-145)
--- NOTE | 2020-04-05 06:15 | PDOC.FM ---
- Subjective Subjective: Pt is a 49yo M with a PMH of HTN, diastolic dysfunction, and ESRD on dialysis who presented with RODRIGUEZ and high BP in the setting of hypertensive urgency. Overnight, no acute events. Patient had an extra dialysis session yesterday since he was found to have a pericardial effusion without tamponade on echo. His BPs remained elevated SBP in the 150-160s, but greatly improved. Today, patient is resting comfortably in bed. No complaints. He denies CP, RODRIGUEZ, changes in vision, abdominal pain, N/V, edema, PND, orthopnea. - Objective MAR Reviewed: Yes Vital Signs & Weight: Vital Signs (12 hours) Temp Pulse Resp BP Pulse Ox 04/05/20 03:15 98.6 F 61 18 166/96 H 98 04/05/20 00:00 160/86 H 04/04/20 19:30 97.5 F L 61 16 158/84 H 96 Weight Weight 66.678 kg Most Recent Monitor Data Heart Rate from ECG 58 NIBP 120/73 NIBP BP-Mean 88 Respiration from ECG 14 SpO2 100 I&O: 04/03/20 04/04/20 04/05/20 06:59 06:59 06:59 Intake Total 1395 880 840 Output Total 1999 Balance 1395 880 -1160 Result Diagrams: 04/05/20 03:45 04/05/20 03:45 Phys Exam - Physical Examination Constitutional: NAD HEENT: sclera anicteric Neck: full ROM Respiratory: no wheezing, clear to auscultation bilateral Cardiovascular: RRR, no significant murmur Gastrointestinal: soft, non-tender, no distention, positive bowel sounds Musculoskeletal: no edema, pulses present Neurological: moves all 4 limbs Psychiatric: normal affect, A&O x 3 Skin: no rash, normal turgor Dx/Plan - Plan Plan: 1. Hypertensive Urgency patient's BP in the ED was 229/128. Received hydralazine 40mg IV, nitro and dilt 20mg IV in the ED -goal BP around 180. Patient states home BPs are in the 140s. -Hydralazine 10mg PRN for SBP>180 -Cardene gtt from 194 to 0 (04/02) -continue home meds of Metoprolol 50mg BID, Clonidine patch .3 -Procardia 60mg XL, Losartan 50mg, Terazosin 5mg as per Dr. Juarez -continue to monitor 2. ESRD on dialysis -MWF dialysis schedule, will continue - Cr 7.37 after extra session of dialysis on 04/04 -director of patient care Dr. Juarez on board, appreciate the recs 3. Diastolic dysfunction -previous echo showed diastolic dysfunction with EF of 60-65% in 07/2019 -fluid restriction 1200mL -echo shows EF 55-60% with grade 1/3 diastolic dysfunction, moderate mitral regurgitation, mild aortic regurgitation, moderate to severe tricuspid regurgitation, mild pulmonic regurgitation, moderate sized pericardial effusion without tamponade, no evidence of atrial collapse 4. Cardiogenic pulmonary edema likely 2/2 poorly controlled HTN -patient complaining of fluid overload symptoms in ED, elevated BNP, but no physical exam findings -patient is doing well today, no complaints 5. Thrombocytopenia likely secondary to ESRD -will continue to monitor -platelets at 97,000 today. OK to continue Heparin 6. Hyperkalemia, resolved likely secondary to initiation of an ARB vs ESRD on hemodialysis -will continue to monitor Code: FULL IVF: KVO PCP: Shu Maria, DO-out of town Dispo: CCU, inpatient Attending: Ayad Sullivanum - Attending - Attending Attestation Date/Time: 04/05/20 2084 I personally evaluated the patient and discussed the management with Dr. Teixeira. I agree with the History, Examination, Assessment and Plan documented above with any addition or exceptions noted below. Patient doing well. Anticipate he will go for his normal HD today. Monitor BP and then dc if stable after HD.
--- NOTE | 2020-04-05 08:06 | ULT ---
Renal sonogram with duplex evaluation HISTORY: Renal failure. FINDINGS: Right kidney measures up to 6.1 cm in length with diffuse cortical thinning and irregularit y. No hydronephrosis. Small exophytic cyst at the superior pole 0.9 cm. Minimal fluid within Morison's pouch. Left kidney is 7.0 cm length with diffuse cortical thinning and increased echogenicity. No hydronephrosis. Urinary bladder is decompressed and incompletely imaged. Good color and spectral Doppler flow within the abdominal aorta and renal arteries. No abnormally soha vated peak systolic velocities evident. Resistive indices associated with the arcuate arteries of the right kidney is 0.6 and the left kidney 0.6. IMPRESSION : Diffusely atrophied kidneys without evidence of urinary tract obstruction. No vascular abnormalities are demonstrated
--- NOTE | 2020-04-05 09:02 | PRG ---
DATE OF SERVICE: 04/05/2020 SUBJECTIVE: Mr. Andersen is a 49-year-old male with ESRD, was admitted for labile hypertension. BP adjustments have been done. During the initial evaluation, he was found to be in CHF as well as finding of a pericardial effusion. My feeling is that this was related to the minoxidil. Minoxidil has been discontinued. He received extra dialysis yesterday for fluid removal. I have scheduled him for his regular dialysis today. He voices no new complaints. He denies any chest pain, shortness of breath, or nausea or vomiting. OBJECTIVE: VITAL SIGNS: Blood pressure 166/96, heart rate 61, respiratory rate 18, temperature 98.6, and O2 sats 98%. GENERAL: Noted to be awake, alert, and comfortable, not in overt distress. SKIN: Adequate turgor. HEENT: Pinkish conjunctivae. Anicteric sclerae. No neck mass. No carotid bruits. No JVD. CHEST: No deformities. LUNGS: Clear breath sounds. No wheezing. No crackles. HEART: Normal sinus rhythm. No murmur. No gallops. No rubs. ABDOMEN: Globular, soft, and nontender. No masses. EXTREMITIES: No edema. MEDICATIONS: Medications of April 05, 2020, was reviewed. LABORATORY DATA: Of April 05, 2020; white count 3.5 and hemoglobin 12.1. Sodium 135, potassium 4.5, chloride 97, carbon dioxide 26, BUN 28, creatinine 7.37, and calcium is 7.9. LFTs normal. ASSESSMENT AND PLAN: 1. Congestive heart failure/pericardial effusion, receiving extra hemodialysis for fluid removal. He is again scheduled for his regular dialysis. Again, we will attempt maximal fluid removal as tolerated. 2. Labile hypertension, improving. Continue current BP medications and if needed, we can max out nifedipine to 90 mg XL tablet once a day. 3. End-stage renal disease as previously mentioned. Continue Wednesday, Wednesday, and Wednesday hemodialysis regimen and fluid removal only as tolerated. Job ID: [id number]
--- NOTE | 2020-04-05 12:29 | PQF ---
Q26 2018 [facility] Updated: Patient Name: DILSHAD LLAMAS Date of : 1970 Account: [id number] Admit Date: 04/02/2020 [facility] CL[facility]ICAL DOCUMENTATION CLARIFICATION FORM: *OPTUM Patient INFO Dear Dr. Teixeira/ Dr. Lion Date: 04/04/20 Please exercise your independent, professional judgment in responding to the clarification form. Clinical indicators are provided on the bottom of this form for your review. Please check appropriate box(es): HEART FAILURE: ACUITY On admission, patient had symptoms of fluid overload such as paroxysmal dyspnea and orthopnea but did not have crackles on auscultation or edema. He has a history of occasional swelling in his testicle and legs, but he is also an ESRD patient on dialysis, which could also explain fluid overload. On previous admission, it was mentioned that patient may have a history of diastolic heart failure, but echo on admission showed only diastolic dysfunction with a normal EF and actually showed pericardial effusion without tamponade. It is likely 2/2 this that patient had pulmonary vascular congestion and symptoms of fluid overload on his chest XR and had the symptoms he was experiencing, not because of heart failure. Opal Teixeira M.D [ ] Acute [ ] Acute on Chronic [ ] Chronic [x] Other: see above In addition, please specify: Present on Admission (POA): [ ] Yes [ ] No [ x ] Unable to determine For continuity of documentation, please document condition throughout progress notes and discharge summary. Thank You. To be completed by CDI/Coding staff for physician review: CLINICAL INDICATORS - SIGNS / SYMPTOMS / LABS / RESULTS AND LOCATION IN EMR BNP 4245.2 (04/02) CHEST XRAY 04/02: "PULMONARY VENOUS CONGESTION" H&P: "PATIENT ENDORSES TROUBLE SLEEPING SECONDARY TO SOB, AND STATES HE CANNOT LAY FLAT AND HE OFTEN WAKES UP IN THE MIDDLE OF THE NIGHT BECAUSE HE CAN'T BREATHE. HE OCCASIONALLY HAS SWELLING OF HIS LEGS AND HIS RIGHT SCROTUM." ECHO REPORT 04/03: "ER VISUALLY ESTIMATED AT 55-60%, GRADE 1/3 DIASTOLIC DYSFUNCTION, MODERATELY DILATED ATRIUM" RISKS: HYPERTENSIVE URGENCY (PN 04/04- DR. TEIXEIRA) H/O ESRD H/O DIASTOLIC HEART FAILURE (H&P- DR. TEIXEIRA) TREATMENT: ECHO 04/03 FLUID RESTRICTION ORDERED 04/02 STRICT I&Os (H&P) TELEMETRY MONITORING CDS Signature: Livier Hinton RN Phone #: [phone] Date: 04/04/20 This is a permanent part of the Medical Record [facility]
[2020-04-05 13:23] VITALS: BP 180/93; TEMP 99
[2020-04-05] MEDS: NIFEdipine XL 60 MG TAB PO SCH (14:40)
[2020-04-05] MEDS: Metoprolol Tartrate 50 MG TAB PO SCH (14:40)
[2020-04-05] MEDS: Heparin 5,000 UNITS/ML VIAL SC SCH (14:40)
[2020-04-05] MEDS: Polyethylene Glycol 3350 17 GM Packet PO SCH (14:41)
--- NOTE | 2020-04-08 07:27 | DIS ---
DATE OF ADMISSION: 04/02/2020 DATE OF DISCHARGE: 04/05/2020 RESIDENT: Opal Teixeira MD ADMITTING ATTENDING: Tylor Lion MD DISCHARGE ATTENDING: Tylor Lion MD CONSULTS: Dr. Juarez, Nephrology. PROCEDURES: Echo, which showed ejection fraction of 55% to 60% with a grade 1 of 3 diastolic dysfunction, moderate mitral regurgitation, mild aortic regurgitation, [id number] tricuspid regurgitation, mild pulmonic regurgitation, and moderate-sized pericardial effusion without tamponade. No evidence of atrial clips. Renal ultrasound was done, which was negative. PRIMARY DIAGNOSIS: Hypertensive urgency. SECONDARY DIAGNOSES: End-stage renal disease on dialysis, diastolic dysfunction, cardiogenic pulmonary edema likely secondary to poorly controlled hypertension, thrombocytopenia, and hyperkalemia. DISCHARGE MEDICATIONS: 1. Metoprolol 50 mg b.i.d. 2. Procardia 60 mg extended release. 3. Terazosin 5 mg at night. 4. Losartan 50 mg. 5. Clonidine patch 0.3. DISCONTINUED MEDICATIONS: Minoxidil. HISTORY OF PRESENT ILLNESS AND HOSPITAL COURSE: A -mwif-lim male with a past medical history of end-stage renal disease on hemodialysis, presented with blood pressures in the systolics of 220s. He also is complaining of headache and nausea and vomiting. The patient says when he had dialysis, he was told his blood pressure was high and he had a little bit of headache and nausea. Though, when he presented to the ED, his blood pressure was fairly elevated in the 220s and he was exhibiting symptom. He says that he has compliant with his home blood pressure medications of metoprolol, Minoxidil, and clonidine patch. However, a discharge note from July 2019, states he was actually supposed to be taking metoprolol, clonidine, and nifedipine and not Minoxidil. He says that he has trouble sleeping because of short of breath. He cannot lay flat without waking up gasping for air. He says he sometimes has swelling in his legs and the scrotum, but he does not. He did not have any of the symptoms on interview in the emergency room. He denied any chest pain, changes in his vision, abdominal pain, fever, chills, or shortness of breath, and he is not aware of any history of heart failure or heart disease. In the ED, the patient got hydralazine 40, . His blood pressure came down below 200 and he was admitted to the floor. However, on the floor despite all of those blood pressure medications, his blood pressures did spike up again into the 190s and then over the 200, so he was transferred to the [facility] to be put on a Cardene drip, which he was only on for about 3 or 4 hours and his blood pressures came down and he was then transferred back to the floor. On the floor, his blood pressures were stable in the 140s; however, they started just slowly creep up and he started to complain of a little bit of headache. His Procardia was increased to 60 mg XL and he got an echo, which showed improved around the heart, so he went in for an extra session of dialysis on . The patient denied symptoms after this point; however, his blood pressures still are pretty high in the 170s to 190 and the biggest goal during hospital stay was to get his blood pressures less than 180 while he was also asymptomatic. On discharge, the patient's vitals were stable. He was sating well on room air. His blood pressures got down to the 160s and 170. DISPOSITION: Stable. DISCHARGE INSTRUCTIONS: 1. Locations: Home. 2. Diet: Heart healthy diet and renal diet with fluid restriction of 1500 mL. 3. Activity: As tolerated. 4. Followup: Follow up with Dr. Juarez, layout operator and PCP in a week. Job ID: [id number]
--- NOTE | 2020-04-08 15:45 | ULT ---
"PRELIMINARY REPORT" Renal sonogram with duplex evaluation HISTORY: Renal failure. FINDINGS: Right kidney measures up to 6.1 cm in length with diffuse cortical thinning and irregularit y. No hydronephrosis. Small exophytic cyst at the superior pole 0.9 cm. Minimal fluid within Morison's pouch. Left kidney is 7.0 cm length with diffuse cortical thinning and increased echogenicity. No hydronephrosis. Urinary bladder is decompressed and incompletely imaged. Good color and spectral Doppler flow within the abdominal aorta and renal arteries. No abnormally soha vated peak systolic velocities evident. Resistive indices associated with the arcuate arteries of the right kidney is 0.6 and the left kidney 0.6. IMPRESSION : Diffusely atrophied kidneys without evidence of urinary tract obstruction. No vascular abnormalities are demonstrated Transcribed Date/Time: 04/08/2020 3:11 PM
== END 2020-04-05 15:15 | disposition home or self-care (01) | DRG 304 ==
LOC: ERS 08:04 → OBSVTOIN 10:22 → 2NO 10:22 → CCU 14:57 → 2NO 04-03 11:45
PROVIDERS: ADMIT Student in an Organized Health Care Education/Training Program; ATTEND Student in an Organized Health Care Education/Training Program
PROC: 3E1M39Z Irrigation of Peritoneal Cavity using Dialysate, Percutaneous Approach (ICD-10-PCS; principal; 2020-04-05)
DX: I16.0 Hypertensive urgency (principal); N18.6 End stage renal disease; I31.3 Pericardial effusion (noninflammatory); I08.3 Combined rheumatic disorders of mitral, aortic and tricuspid valves; D69.59 Other secondary thrombocytopenia; I12.0 Hypertensive chronic kidney disease with stage 5 chronic kidney disease or end stage renal disease; E87.5 Hyperkalemia; Z99.2 Dependence on renal dialysis
CPT/HCPCS: 36415; 70450; 71045; 76770; 80053; 82550; 83690; 83880; 84484; 85025; 90935; 93005; 93306; 93975; 96374; 96375; 96376; 97139; G0257; J0360; J1644; J2405; J7050; Q0169